=== PATIENT | female | born 1960 | race Two or more races ===

== ENCOUNTER 2024-10-14 11:19 | Emergency (ER) | payer MEDICAID, OTHER ==
[~2024-10-14] VITALS: Ht 154.9 cm; Wt 58.8 kg
[~2024-10-14 11:19] MED LIST: [UNRECOGNIZED DRUG - OTHER]
--- NOTE | 2024-10-14 11:35 | ED.PDOC ---
Back pain HPI HPI Comments 63 year female presents to the ED with chief complaint of left rib pain. Patient reports that she has been experiencing sudden left sided rib pain since Wednesday, worsening over time and becoming unbearable today. Patient relays that her pain worsens with movement and breathing in. Patient relays that she did have some hematuria 2 weeks ago, unsure if related. Patient denies any N/V/D, chest pain, abdominal pain, flank pain, dysuria, or current hematuria. Time Seen by MD: 11:29 Primary Care Provider: NONE Reviewed Notes: Nurses Notes, Medications, Allergies Allergies: Coded Allergies: Acetaminophen (Verified Allergy, Unknown, 10/14/24) Aspirin (Verified Allergy, Unknown, 10/14/24) Uncoded Allergies: FABRIZIO SELTZER (Allergy, Unknown, 10/14/24) Home Meds Reported Medications [Tempra] No Conflict Check 03/21/12 Information Source: Patient Mode of Arrival: Ambulatory Timing: Days Duration: Since onset Severity: Moderate Prehospital treatment: None Quality: Sharp Onset: Spontaneous Modifying Factors: Movement, Twisting, Breathing Past Medical History PAST MEDICAL HISTORY: Anemia Surgical History: Denies all surgeries IRRIGATION PUMP INSTALLER History: No Pertinent IRRIGATION PUMP INSTALLER History Family History Family History: Reviewed,noncontributory to illness, Unknown Social History Smoker: Non-Smoker Alcohol: Denies ETOH Use Drugs: Denies Drug Use Lives In: Home Constitutional: denies: chills, diaphoresis, fatigue, fever, malaise, sweats, weakness, others EENTM: denies: blurred vision, double vision, ear bleeding, ear discharge, ear drainage, ear pain, ear ringing, eye pain, eye redness, hearing loss, mouth pain, mouth swelling, nasal discharge, nose bleeding, nose congestion, nose pain, photophobia, tearing, throat pain, throat swelling, voice changes, others Respiratory: denies: cough, hemoptysis, orthopnea, SOB at rest, shortness of breath, SOB with excertion, stridor, wheezing, others Cardiovascular: denies: chest pain, dizzy spells, diaphoresis, Dyspnea on exertion, edema, irregular heart beat, left arm pain, lightheadedness, palpitations, PND, syncope, others Gastrointestinal: denies: abdomen distended, abdominal pain, blood streaked bowels, constipated, diarrhea, dysphagia, difficulty swallowing, hematemesis, melena, nausea, poor appetite, poor fluid intake, rectal bleeding, rectal pain, vomiting, others Genitourinary: denies: abnormal vagina bleeding, burning, dyspareunia, dysuria, flank pain, frequency, hematuria, incontinence, pain, , vagina discharge, urgency, others Neurological: denies: dizziness, fainting, headache, left sided numbness, left sided weakness, numbness, paresthesia, pre-existing deficit, right sided n umbness, right sided weakness, seizure, speech problems, tingling, tremors, weakness, others Musculoskeletal: reports: others (Left rib pain); denies: back pain, gout, joint pain, joint swelling, muscle pain, muscle stiffness, neck pain Integumetry: denies: bruises, change in color, change in hair/nails, dryness, laceration, lesions, lumps, rash, wounds, others Allergic/Immunocompromised: denies: Difficulty Healing, Frequent Infections, Hives, Itching, others Hematologic/Lymphatic: denies: anemia, blood clots, easy bleeding, easy bruising, swollen glands, others Endocrine: denies: excessive hunger, excessive sweating, excessive thirst, excessive urination, flushing, intolerance to cold, intolerance to heat, unexplained weight gain, unexplained weight loss, others Psychiatric: denies: anxiety, bipolar disorder, depression, hopeless, panic disorder, schizophrenia, sleepless, suicidal, others All Other Systems: Reviewed and Negative Physical Exam General Appearance: No Apparent Distress, Normal HEENT: Normal ENT Inspection, Pharynx Normal, TMs Normal Neck: Full Range of Motion, Non-Tender, Normal, Normal Inspection Respiratory: Chest Non-Tender, Lungs Clear, No Accessory Muscle Use, No Respiratory Distress, Normal Breath Sounds Cardiovascular: No Edema, No JVD, No Murmur, No Gallop, Normal Peripheral Pulses, Regular Rate/Rhythm Breast Exam: Deferred Gastrointestinal: No Organomegaly, Non Tender, No Pulsatile Mass, Normal Bowel Sounds, Soft Genitalia: Deferred Pelvic: Deferred Rectal: Deferred Extremities: No calf tenderness, Normal capillary refill, Normal inspection, Normal range of motion, Non-tender, No pedal edema Musculoskeletal : Location: Left Extremity Location: Other (Ribs) Apperance: Normal, Tenderness (Tenderness to left posterior lateral chest wall with palpation, range of motion and inspiration) 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 Was a procedure done?: No Back Pain Differential Dx Differential Diagnosis: Fracture, Musculoskeletal Pain, Pyelonephritis, Strain, Urinary Obstruction, Urolithiasis X-Ray, Labs, Meds, VS Vital Signs Date Time Temp Pulse Resp B/P (MAP) Pulse Ox O2 Delivery O2 Flow Rate FiO2 10/14/24 12:51 78 16 100 Room Air 10/14/24 12:51 98.0 88 16 110/59 (76) 100 98.0 10/14/24 11:29 97.8 88 20 106/49 (68) 100 97.8 Lab Test 10/14/24 11:44 10/14/24 11:30 Range/Units White Blood Count 6.2 4.4-10.8 10^3/uL Red Blood Count 5.13 4.0-5.20 10^6/uL Hemoglobin 16.0 12.2-16.2 g/dL Hematocrit 47.4 H 36.0-46.0 % Mean Corpuscular Volume 92.5 80.0-100.0 fL Mean Corpuscular Hemoglobin 31.2 28.0-32.0 pg Mean Corpuscular Hemoglobin Concent 33.7 32.0-36.0 g/dL Red Cell Distribution Width 13.3 11.8-14.3 % Platelet Count 189 140-450 10^3/uL Mean Platelet Volume 9.4 6.9-10.8 fL Neutrophils (%) (Auto) 59.8 37.0-80.0 % Lymphocytes (%) (Auto) 31.3 10.0-50.0 % Monocytes (%) (Auto) 6.9 0.0-12.0 % Eosinophils (%) (Auto) 1.4 0.0-7.0 % Basophils (%) (Auto) 0.6 0.0-2.0 % Neutrophils # (Auto) 3.7 1.6-8.6 10 ^3/uL Lymphocytes # (Auto) 1.9 0.4-5.4 10 ^3/uL Monocytes # (Auto) 0.4 0-1.3 10 ^3/uL Eosinophils # (Auto) 0.1 0-0.8 10 ^3/uL Basophils # (Auto) 0 0-0.2 10 ^3/uL Nucleated Red Blood Cells 0.1 % Sodium Level 142 136-145 mmol/L Potassium Level 4.5 3.5-5.1 mmol/L Chloride Level 104 98-107 mmol/L Carbon Dioxide Level 29 20-31 mmol/L Anion Gap 9 5-15 Blood Urea Nitrogen 14 9-23 mg/dL Creatinine 0.81 0.550-1.02 mg/dL Glomerular Filtration Rate Calc 83 >90 mL/min BUN/Creatinine Ratio 17.3 10.0-20.0 Serum Glucose 123 H 74-106 mg/dL Calcium Level 10.8 H 8.7-10.4 mg/dL Urine Color Yellow Yellow Urine Clarity Turbid H Clear Urine pH 5.0 5.0-9.0 Urine Specific [place] 1.026 1.001-1.035 Urine Protein Trace H Negative Urine Ketones Negative Negative Urine Blood Trace H Negative /uL Urine Nitrite Negative Negative Urine Bilirubin Negative Negative Urine Urobilinogen Normal Negative mg/dL Urine Leukocyte Esterase 3+ Negative /uL Urine RBC 13 0 - 4 /hpf Urine Microscopic WBC 70 H 0-5 /HPF Urine Squamous Epithelial Cells Mod <5 /hpf Urine Bacteria Few H None Seen /hpf Urine Mucus Few None Seen Urine Glucose Normal Normal mg/dL Current Medications Medications (Trade) Dose Ordered Sig/Lupillo Route Start Time Stop Time Status Last Admin Ketorolac Tromethamine (Toradol Injection) 15 mg ONCE ONCE IM 10/14/24 11:30 10/14/24 11:31 DC 10/14/24 12:28 Lt XR Rib: FINDINGS: No focal consolidation, pleural effusion or significant pneumothorax. Normal cardiomediastinal silhouette. Nondisplaced left 9th rib fracture IMPRESSION: 1. Left anterior nondisplaced 9th rib fracture Abd/Pel: FINDINGS: Bibasilar atelectasis. Partially visualized heart is unremarkable. There is incompletely assessed right hepatic lobe 7.4 x 7.9 x 8.4 cm hypodense lesion with internal irregular cystic area. Status post cholecystectomy. Subcentimeter hypodense lesions within the spleen that are too small to characterize. Pancreas and adrenal glands unremarkable. Kidneys, ureters and urinary bladder unremarkable. Status post hysterectomy. Suggested surgical clip within the left hemipelvis. Stomach is unremarkable. Small bowel loops unremarkable. Appendix is unremarkable. Large amount of fecal material within the ascending and transverse colons with small amount of fecal material within the remainder of the colon. Sigmoid diverticulosis without diverticulitis. No evidence of intraperitoneal free air or free fluid. No evidence of aortic aneurysm. Mild atherosclerotic calcification of the aorta. No significant lymphadenopathy. Partially visualized bilateral breast implants. Tiny fat containing umbilical hernia. No destructive osseous lesions noted. Grade 1 retrolisthesis of L1 on L2 and L2 on L3 with grade 1 anterolisthesis of L4 on L5. IMPRESSION: No evidence of acute abdominopelvic abnormalities. Kidneys, ureters and urinary bladder are unremarkable. Sigmoid diverticulosis without diverticulitis. There is incompletely assessed right hepatic lobe 7.4 x 7.9 x 8.4 cm hypodense lesion with internal irregular cystic area. multiphase contrast-enhanced CT/ MRI is recommended for further evaluation. Images Reviewed?: Images reviewed and evaluated by me Time of 1ST Reevaluation: 12:29 Reevaluation 1ST: Unchanged Patient Education/Counseling: Diagnosis, Treatment, Prognosis, Need For Follow Up Family Education/Counseling: No Family Present Additional Information Previous visits: 03/21/12 chest wall contusion The following tests were ordered, and results were reviewed by me: Left rib XR, UA, CBC, BMP Additional Information was gathered from interviewing the following independent historians: None I reviewed and agreed with the following test results read by other providers: Left Rib XR I discussed treatment and results with medical personnel and: patient Comprehensive systems review obtained and negative except for what is stated in the HPI. THERE IS A RIGHT HEPATIC LESION INCIDENTALLY FOUND ON CT. SHE DOES NOT HAVE PYELONEPHRITIS OR STONES. SHE DOES HAVE AN UTI. IN ADDITION SHE HAS A SINGLE LEFT 9TH RIB FRACTURE, WITHOUT TRAUMA. ALTHOUGH THERE ARE NO RADIOGRAPHIC LESIONS OF THE RIBS, BESIDES THE FRACTURE, IN LIGHT OF THE LIVER LESION, A PATHOLOGIC FRACTURE MUST BE CONSIDERED. I WILL ADMIT PT FOR FURTHER WORKUPS Departure 1 Departure Time of Disposition: 13:21 Impression: Primary Impression: Rib fracture Qualified Codes: S22.31XA - Fracture of one rib, right side, initial encounter for closed fracture Additional Impressions: Liver mass, right lobe Intractable pain Disposition: ADMITTED INPATIENT Admit to: Med Surg Condition: Stable Discharged With: Self Critical Care Note Critical Care Time?: Yes (45 min-critical care time only) Critical care comment: Due to concerns for patients condition deteriorating, the care required my highest level of attention and readiness to intervene. I assessed the patient, reviewed the medical records, ordered the appropriate tests and treatments, then reassessed for results and responsiveness. I communicated with medical personnel and consultants and formulated a plan of care. Total critical care time excludes any procedures Stability Stability form required: No Heart Score Heart Score: Heart Score Response (Comments) Value History N/A 0 EKG N/A 0 Age N/A 0 Risk Factors N/A 0 Troponin N/A 0 Total 0 I personally scribed for IRWIN PAL MD ([email or web address]) on 10/14/24 at 11:35. Electronically submitted by Nba Patel ([email or web address]). I personally scribed for IRWIN PAL MD ([email or web address]) on 10/14/24 at 13:19. Electronically submitted by Nba Patel ([email or web address]). IRWIN PAL MD October 14, 2024 11:35
--- NOTE | 2024-10-14 12:12 | DVH ---
EXAMINATION: XY L RIB X RAY INDICATION: rib pain COMPARISON: None TECHNIQUE: Frontal view of the chest and < 4 <>> views of the < left <>> ribs History: Trauma FINDINGS: No focal consolidation, pleural effusion or significant pneumothorax. Normal cardiomediastinal silhou ette. Nondisplaced left 9th rib fracture IMPRESSION: 1. Left anterior nondisplaced 9th rib fracture
[2024-10-14 12:13] LABS: Chloride 104 mmol/L (98-107); Potassium 4.5 mmol/L (3.5-5.1); Sodium 142 mmol/L (136-145)
[2024-10-14 12:14] LABS: Anion Gap 9 (5-15); Carbon Dioxide 29 mmol/L (20-31)
[2024-10-14 12:16] LABS: Basophils # (auto) 0 10 ^3/uL (0-0.2); Basophils % (auto) 0.6 % (0.0-2.0); Eosinophils # (auto) 0.1 10 ^3/uL (0-0.8); Eosinophils % (auto) 1.4 % (0.0-7.0); Hematocrit 47.4 % (36.0-46.0); Lymphocytes # (auto) 1.9 10 ^3/uL (0.4-5.4); Lymphocytes % (auto) 31.3 % (10.0-50.0); Mean Corpuscular Hemoglobin 31.2 pg (28.0-32.0); Mean Corpuscular Hgb Conc. 33.7 g/dL (32.0-36.0); Mean Corpuscular Volume 92.5 fL (80.0-100.0); Monocytes # (auto) 0.4 10 ^3/uL (0-1.3); Monocytes % (auto) 6.9 % (0.0-12.0); Neutrophils # (auto) 3.7 10 ^3/uL (1.6-8.6); Neutrophils % (auto) 59.8 % (37.0-80.0); Nucleated Red Blood Cells % 0.1 %; Platelet Count (auto) 189 10^3/uL (140-450); Red Blood Cells 5.13 10^6/uL (4.0-5.20); Red Cell Distribution Width 13.3 % (11.8-14.3); White Blood Cell 6.2 10^3/uL (4.4-10.8)
[2024-10-14 12:16] LABS: Urine Bacteria FEW /hpf (None Seen); Urine Blood TRACE /uL (Negative); Urine Clarity Turbid (Clear); Urine Color Yellow (Yellow); Urine Mucus FEW (None Seen); Urine Protein, UAD TRACE (Negative); Urine Specific Gravity 1.026 (1.001-1.035); Urine Squamous Epithelial Cell MOD /hpf (<5); Urine Urobilinogen Normal (Negative); Urine WBC 70 /HPF (0-5)
[2024-10-14 12:19] LABS: BUN/Creatinine Ratio 17.3 (10.0-20.0); Blood Urea Nitrogen 14 mg/dL (9-23)
[2024-10-14 12:24] LABS: Calcium 10.8 mg/dL (8.7-10.4); Glucose 123 mg/dL (74-106)
[2024-10-14] MEDS: KETOROLAC TROMETH 30 MG/ML 1ML VIAL IM ONE (12:28)
[2024-10-14 12:51] VITALS: TEMP 98
--- NOTE | 2024-10-14 13:13 | DVH ---
Exam: CT CT AB PEL WO CON-NO ORAL OR IV History: left flank pain Comparison Study: None available at time of dictation. TECHNIQUE: Multidetector CT of the abdomen and pelvis without IV contrast. Axial, coronal and sagitta l multiplanar reformats were obtained from the axial data set by the technologist. Radiation Dose Information: CT Dose: CTDI volume is 7.52 mGy. Dose-length product is 363.92 mGy*cm FINDINGS: Bibasilar atelectasis. Partially visualized heart is unremarkable. There is incompletely assessed right hepatic lobe 7.4 x 7.9 x 8.4 cm hypodense lesion with internal i rregular cystic area. Status post cholecystectomy. Subcentimeter hypodense lesions within the spleen that are too small to characterize. Pancreas and adrenal glands unremarkable. Kidneys, ureters and urinary bladder unremarkable. Status post hysterectomy. Suggested surgical clip within the left hemipelvis. Stomach is unremarkable. Small bowel loops unremarkable. Appendix is unremarkable. Large amount of f ecal material within the ascending and transverse colons with small amount of fecal material within t he remainder of the colon. Sigmoid diverticulosis without diverticulitis. No evidence of intraperitoneal free air or free fluid. No evidence of aortic aneurysm. Mild atherosclerotic calcification of the aorta. No significant lymphadenopathy. Partially visualized bilateral breast implants. Tiny fat containing umbilical hernia. No destructive osseous lesions noted. Grade 1 retrolisthesis of L1 on L2 and L2 on L3 with grade 1 anterolisthesis o f L4 on L5. IMPRESSION: No evidence of acute abdominopelvic abnormalities. Kidneys, ureters and urinary bladder are unremarkable. Sigmoid diverticulosis without diverticulitis. There is incompletely assessed right hepatic lobe 7.4 x 7.9 x 8.4 cm hypodense lesion with internal i rregular cystic area. multiphase contrast-enhanced CT/ MRI is recommended for further evaluation.
[2024-10-14] MEDS ORDERED: HYDROcodone-ACET 5/325MG TAB PO ONE (13:30)
[2024-10-14 14:12] VITALS: BP 134/90
[2024-10-14] MEDS: fentaNYL CITRATE 100 MCG/2 ML VL IM ONE (14:12)
[2024-10-14 14:14] VITALS: PULSE 88; RESP 14; O2SAT 96
[2024-10-14] MEDS ORDERED: HYDROcodone-ACET 5/325MG TAB PO PRN (17:45)
[2024-10-14] MEDS ORDERED: ACETAMINOPHEN 325 MG TAB PO PRN (17:45)
[2024-10-14] MEDS ORDERED: KETOROLAC TROMETH 30 MG/ML 1ML VIAL IV PRN (17:45)
[2024-10-15] MEDS ORDERED: ENOXAPARIN SOD 40 MG/0.4 ML SYRINGE SC SCH (10:00)
== END 2024-10-14 18:29 | disposition left against medical advice (07) ==
LOC: ER 11:22 → UNDODISIN 17:43 → UNDOADMIN 17:43 → OVERFLOW 17:43
DX: S22.32XA Fracture of one rib, left side, initial encounter for closed fracture (principal); R16.0 Hepatomegaly, not elsewhere classified; Z88.2 Allergy status to sulfonamides; Z88.8 Allergy status to other drugs, medicaments and biological substances; X58.XXXA Exposure to other specified factors, initial encounter; Y93.89 Activity, other specified; Y92.89 Other specified places as the place of occurrence of the external cause; Y99.8 Other external cause status
CPT/HCPCS: 36415; 71101; 74176; 80048; 81001; 85025; 96372; 99285; J1885; J3010; 99291; G0378